=== PATIENT | male | born 1990 | race African-American/Black ===

== ENCOUNTER 2020-08-14 17:07 | Emergency (ER) | payer BC, SELFPAY ==
[2020-08-14] VITALS (15 sets, daily range): BP systolic 119–141; BP diastolic 71–87; PULSE 83–137; RESP 15–27; TEMP 36.9; O2SAT 92–99
--- NOTE | ~2020-08-14 | CT_ITS ---
EXAMINATION: CT brain wo con DATE: 08/14/2020 18:03 INDICATION: Seizure. TECHNIQUE: Computed tomography (CT) of the head was performed without intravenous contrast. The mA wa s adjusted according to patient size. Iterative reconstruction technique was employed. The dose-lengt h product was 605.33 mGy-cm. COMPARISON: None FINDINGS: There is no intracranial hemorrhage, acute infarction, or abnormal intracranial mass lesion . The ventricles are normal in size. There is cavum septum pellucidum and vergae. The orbits are norm al. There is mucosal thickening in the paranasal sinuses. The mastoid air cells are normal. IMPRESSION: 1. Normal brain. Reviewed, dictated and finalized at location A. IMPRESSION: 1. Normal brain.
[2020-08-14 18:33] LABS: Basophils Percent Auto 0.3 % (0.2-1.2); Eosinophils Absolute Auto 0.1 K/mm3 (0-0.3); Hemoglobin 15.2 g/dL (14.0-18.0); Immature Granulocyte Absolute 0.03 K/mm3 (0.00-0.031); Immature Granulocyte Percent A 0.3 % (0-0.5); Lymphocytes Absolute Auto 0.67 K/mm3 (0.9-3.2); Lymphocytes Percent Auto 7.6 % (18.3-44.2); Mean Corpuscular Hemoglobin 29.9 pg (26-34); Mean Corpuscular Volume 90.4 fl (80-100); Mean Platelet Volume 9.2 fl (7.4-10.4); Monocytes Absolute Auto 0.5 K/mm3 (0.1-0.6); Monocytes Percent Auto 5.1 % (2.6-8.5); Neutrophils Absolute Auto 7.5 K/mm3 (1.3-6.7); Neutrophils Percent Auto 85.7 % (45.5-73.1); Platelet Count Result 156 k/mm3 (150-375); Red Blood Count 5.09 M/mm3 (4.6-6.20); White Blood Count 8.8 K/mm3 (4.5-10.0)
[2020-08-14 18:37] LABS: Add Urine Microscopic? YES; Appearance Urine Clear (Clear); Bilirubin Urine Negative (Negative); Blood Urine 1+ (Negative); Color Urine Straw (Yellow); Glucose Urine UA Negative (Negative); Ketones Urine Negative (Negative); Leukocyte Esterase Ur Negative LEU/UL (Negative); Mucus Urine Rare /lpf; Nitrate Urine Negative (Negative); Protein Urine Negative (Negative); RBC Urine 0-2 /hpf (0-2); Specific Grav Ur 1.016 (1.001-1.035); Squamous Epithelial Cell Urine Rare /hpf (Few); Urobilinogen Urine Negative mg/dL (<2.0); WBC Urine 0-3 /hpf
--- NOTE | 2020-08-14 18:38 | PC.NURSE ---
c/o feeling like his chest is thumping hard . sitting on cart smiling while reporting this to nurse. vital signs stable. erp aware.
[2020-08-14 18:44] LABS: Creatine Kinase 321 U/L (55-170)
[2020-08-14 18:45] LABS: Alanine Aminotransferase 31 U/L (4-50); Albumin Level 4.8 g/dL (3.5-5.1); Alkaline Phosphatase 58 U/L (38-126); Anion Gap 9 mmol/L (8-16); Aspartate Amino Transferase 40 U/L (17-59); Bilirubin,Total 0.8 mg/dL (0.2-1.3); Blood Urea Nitrogen 17 mg/dL (9-20); Calcium 10.4 mg/dL (8.4-10.2); Carbon Dioxide 27 mmol/L (22-30); Chloride 105 mmol/L (98-107); Estimated CRCL calculation 96 ml/min; Estimated Glomerular Filt Rate > 60; Glucose 67 mg/dL (75-110); Potassium 4.7 mmol/L (3.4-5.0); Sodium 141 mmol/L (137-145)
--- NOTE | 2020-08-14 18:48 | ECG_ITS ---
Measurements Intervals [place] Rate: 105 P: 64 WI: 168 QRS: 22 QRSD: 93 T: 23 QT: 342 QTc: 454 Interpretive Statements SINUS TACHYCARDIA POSSIBLE LEFT ATRIAL ENLARGEMENT INCOMPLETE RIGHT BUNDLE BRANCH BLOCK BORDERLINE T WAVE ABNORMALITY- INFERIOR LEADS BASELINE ARTIFACT- I, II, III, AVL, AVF, V1-V6 ABNORMAL ECG Electronically Signed On 08-14-2020 19:35:30 CDT by Demetrius Campos D.O.
[2020-08-14 19:04] LABS: Amphetamine Screen Urine Negative (Negative); Barbiturate Screen Urine Negative (Negative); Benzodiazepines Screen Urine Negative (Negative); Cannabinoid Screen Urine Negative (Negative); Cocaine Screen Urine Negative (Negative); Methadone Screen Urine Negative (Negative); Opiate Screen Urine Negative (Negative); Phencyclidine Screen Urine Negative (Negative)
--- NOTE | 2020-08-14 19:35 | ED.GENADULT ---
HPI - General Adult General Chief complaint: Seizure Stated complaint: Seizure Time Seen by Provider: 08/14/20 17:15 Source: patient, family and RN notes reviewed Mode of arrival: EMS Limitations: no limitations History of Present Illness HPI narrative: Patient is a 30-year-old male who presents after potential for seizure-like activity was at a pool and had 2 [id number] seizure-like episodes was brought in by EMS for this patient quickly gained normal mentation after the event was amnestic to the elements of the event there were no injuries sustained from the event denies similar occurrence in the past on arrival patient is in the room in no distress and is resting comfortably in no distress Related Data Home Medications Medication Instructions Recorded Confirmed No Home Medications 08/14/20 08/14/20 Allergies Allergy/AdvReac Type Severity Reaction Status Date / Time No Known Allergies Allergy Verified 08/14/20 17:12 Review of Systems Review of Systems: All systems reviewed & are unremarkable except as noted in HPI and below PMFSH Social History Social History (Updated 08/14/20 @ 19:41 by Lv Covington PA-C) Smoking status: Never smoker Exam Narrative: Exam Narrative: GENERAL: Well-appearing, well-nourished, and in no acute distress. HEAD: Normocephalic, atraumatic. EYES: PERRLA and EOMI. ENT: Nares clear, no rhinorrhea or epistaxis. Mucous membranes moist. CHEST: Clear to auscultation. No respiratory distress. No wheezes rales or rhonchi HEART: Regular rate and rhythm. No murmur heard. Normal peripheral pulses. ABDOMEN: Soft, nontender, nondistended EXTREMITIES: Normal range of motion. No edema. No cervical spine tenderness to palpation SKIN: Warm, dry, no rash. NEURO: No focal deficits. Alert and oriented x3. Cranial nerves II through XII grossly intact. Normal speech and gait PSYCH: Normal mood and affect. Course Course Emergency Course: Patient in the room in no distress aware of case findings treatment plan and diagnosis agreeing to follow-up as instructed with primary care who is in [place] patient lives in [place] patient was explained that he needs to follow-up tomorrow by phone for reevaluation patient will be sent home has been given driving restrictions understands that he is not to drive or operate machinery until he has been released by primary care and that he may need referral for specialist if his symptoms persist or continue Vital Signs Vital signs: Vital Signs Temperature 98.4 F 08/14/20 17:07 Pulse Rate 108 H 08/14/20 17:07 Respiratory Rate 18 08/14/20 17:07 Blood Pressure 139/77 08/14/20 17:07 Pulse Oximetry 99 08/14/20 17:07 Temperature 98.4 F 08/14/20 17:07 Pulse Rate 89 08/14/20 19:07 Respiratory Rate 15 08/14/20 19:07 Blood Pressure 119/81 08/14/20 19:07 Pulse Oximetry 97 08/14/20 19:07 Medical Decision Making MDM Narrative Medical decision making narrative: ABCs and vital signs intact patient was hydrated in the emergency department patient felt appropriate for outpatient reevaluation is aware of case findings treatment plan and diagnosis agreeing to follow-up as instructed and will return if symptoms worsen or concerns is afebrile nontoxic-appearing no distress his mother is present they feel comfortable with the current treatment plan and are aware of the case findings and treatment plan Vital Signs Vital Signs: Vital Signs Temperature 98.4 F 08/14/20 17:07 Pulse Rate 108 H 08/14/20 17:07 Respiratory Rate 18 08/14/20 17:07 Blood Pressure 139/77 08/14/20 17:07 Pulse Oximetry 99 08/14/20 17:07 Temperature 98.4 F 08/14/20 17:07 Pulse Rate 89 08/14/20 19:07 Respiratory Rate 15 08/14/20 19:07 Blood Pressure 119/81 08/14/20 19:07 Pulse Oximetry 97 08/14/20 19:07 Lab Data Result diagrams: 08/14/20 18:25 08/14/20 18:25 Labs: Lab Results 08/14/20 08/14/20 06
== END 2020-08-14 20:27 | disposition home or self-care (01) ==
PROVIDERS: Emergency Medicine Emergency Medical Services; Emergency Provider Emergency Medicine
DX: R56.9 Unspecified convulsions (principal); R00.0 Tachycardia, unspecified; I45.10 Unspecified right bundle-branch block; R94.31 Abnormal electrocardiogram [ECG] [EKG]
CPT/HCPCS: 36415; 70450; 80053; 80307; 81001; 82550; 85025; 93005; 99284